=== PATIENT | male | born 1990 | race Two or more races ===

== ENCOUNTER 2023-09-02 04:05 | Day surgery (SDC) | payer OTHER ==
[2023-08-27 12:19] VITALS: BMI 24.3
[2023-09-02] MEDS ORDERED: BUPIVACAINE HCL/PF 0.25% (2.5MG/ML) 10 ML VIAL ONE (10:34)
[2023-09-02] MEDS ORDERED: PROPOFOL 40 ML ONE (11:22)
[2023-09-02] MEDS ORDERED: ROCURONIUM BROMIDE 50 MG/5 ML SYRINGE ONE (11:22)
[2023-09-02] MEDS ORDERED: MIDAZOLAM HCL 2 MG/2 ML SINGLE DOSE VIAL ONE (11:22)
[2023-09-02] MEDS ORDERED: SUCCINYLCHOLINE CHLORIDE 200 MG/10 ML SYRINGE ONE (11:22)
[2023-09-02] MEDS ORDERED: ceFAZolin SODIUM 1 GM VIAL IVPB ONE (11:47)
[2023-09-02] MEDS ORDERED: BUPIVACAINE HCL/PF 0.25% (2.5MG/ML) 10 ML VIAL IJ ONE (12:00)
[2023-09-02] MEDS ORDERED: NEOSTIGMINE METHYLSULFATE 0.5 MG/1 ML - 10 ML MDV ONE (13:50)
[2023-09-02] MEDS ORDERED: PROPOFOL 20 ML ONE (13:52)
[2023-09-02] MEDS ORDERED: oxyCODONE HCL 5 MG TABLET PO PRN (14:06)
[2023-09-02] MEDS ORDERED: ONDANSETRON 4 MG/2 ML VIAL IVPUSH PRN (14:06)
[2023-09-02] MEDS ORDERED: LACTATED RINGERS SOLUTION 1,000 ML IV SCH (14:15)
[2023-09-02 15:55] VITALS: RESP 16
[2023-09-02 17:06] VITALS: BP 140/72; PULSE 78; TEMP 98.4
== END 2023-09-02 17:15 | disposition home or self-care (01) ==
LOC: JASU-SURG 04:05
PROVIDERS: ATTEND Surgery
PROC: 0YQ Anatomical Regions, Lower Extremities, Repair (ICD-10-PCS; principal; 2023-09-02 13:30)
DX: K40.90 Unilateral inguinal hernia, without obstruction or gangrene, not specified as recurrent (principal)
CPT/HCPCS: 49650; S2900; 94760; C1781